=== PATIENT | female | born 1995 | race Caucasian/White ===

== ENCOUNTER 2020-03-12 18:52 | Emergency (ER) | payer SELFPAY ==
[~2020-03-12] VITALS: Ht 154.9 cm; Wt 59.0 kg
[~2020-03-12 18:52] MED LIST: BENADRYL 50MG C50 MG PO; CIPROFLOXACN500 MG PO; ELIMITE60 GM TOP; LORTAB 10-325 M1 TAB PO; MACRODANTIN100 MG PO; ZOFRAN ODT4 MG PO
[2020-03-12] MEDS ORDERED: BACTROBAN TOP (20:10)
[2020-03-12 20:58] VITALS: BP 126/78
== END 2020-03-12 20:58 | disposition home or self-care (01) | DRG 605 ==
LOC: ED 18:52
PROC: 0HQHXZZ Repair Right Upper Leg Skin, External Approach (ICD-10-PCS; principal; 2020-03-12)
DX: S90.512A Abrasion, left ankle, initial encounter (principal); S50.312A Abrasion of left elbow, initial encounter; S71.111A Laceration without foreign body, right thigh, initial encounter; F17.200 Nicotine dependence, unspecified, uncomplicated; V23.5XXA Motorcycle passenger injured in collision with car, pick-up truck or van in traffic accident, initial encounter

== ENCOUNTER 2020-12-18 13:31 | Emergency (ER) | payer SELFPAY ==
[~2020-12-18] VITALS: Ht 154.9 cm; Wt 59.0 kg
[~2020-12-18 13:31] MED LIST changes: +BACTROBAN TOP
[2020-12-18 15:30] VITALS: BP 131/91
== END 2020-12-18 15:30 | disposition left against medical advice (07) | DRG 312 ==
LOC: ED 13:31
DX: R55 Syncope and collapse (principal); F15.10 Other stimulant abuse, uncomplicated; F17.200 Nicotine dependence, unspecified, uncomplicated; Z91.19 Patient's noncompliance with other medical treatment and regimen